=== PATIENT | male | born 1965 | race Caucasian/White ===

== ENCOUNTER → 2020-08-18 | Outpatient (CLI) | payer BC | LOC: KOH-I 08-15 15:15 | DX: M51.16 Intervertebral disc disorders with radiculopathy, lumbar region (principal); M51.17 Intervertebral disc disorders with radiculopathy, lumbosacral region; M48.061 Spinal stenosis, lumbar region without neurogenic claudication; M48.07 Spinal stenosis, lumbosacral region | CPT/HCPCS: 72148 ==

== ENCOUNTER 2021-10-28 22:06 | Emergency (ER) | payer BC ==
[2021-10-28 22:53] LABS: HEMOGLOBIN 16.6 gm/dl (14.0-17.5); RED BLOOD COUNT 5.29 M/UL (4.20-5.50); WHITE BLOOD COUNT 18.7 K/UL (4.5-11.0)
[2021-10-28 23:17] LABS: BUN/CREATININE RATIO 16 (0-10)
== END 2021-10-29 02:36 | disposition home or self-care (01) ==
LOC: ER1 22:06
PROVIDERS: Family Medicine
DX: R10.10 Upper abdominal pain, unspecified (principal); R11.2 Nausea with vomiting, unspecified; D72.829 Elevated white blood cell count, unspecified; R10.819 Abdominal tenderness, unspecified site; E87.6 Hypokalemia; Z86.718 Personal history of other venous thrombosis and embolism
CPT/HCPCS: 71045; 80053; 81001; 82550; 82553; 83690; 84484; 85025; 93005; 96360; 99284; Q9967